=== PATIENT | male | born 1960 | race Hispanic/Latino ===

== ENCOUNTER 2020-06-15 18:02 | Emergency (ER) | payer BC ==
--- OUTSIDE RECORDS SUMMARY | 2020-06-15 18:05 | XMS REPORT | Continuity of Care Document ---
:1960 Author Organization [facility] t Address [address] [place] [address] [place] [id number] Care Team Providers Name Role Phone Unavailable Unavailable Unavailable Problems Condition Condition Condition Status Onset Resolution Last Treating Co mments Source Name Details Category Date Date Treatment Clinician Date Pain, Pain, Diagnosis Active [facility] knee, left [facility] Primary Primary Diagnosis [facility] left knee left knee [facility] Allergies, Adverse Reactions, Alerts This patient has no known allergies or adverse reactions. Medications This patient has no known medications. Procedures This patient has no known procedures. Encounters Start End Encounter Admission Attending Care Care Encounter Source Date/Time Date/Time Type Type Clinicians Facility Department ID 2018-06-01 2018-06-01 [facility] [id number] [facility] [address] 14:30:00 14:30:00 [facility] Results This patient has no known results.
--- NOTE | 2020-06-15 19:30 | RAD REPORT ---
EXAM DESCRIPTION: Regi Single View06/15/2020 7:24 pm CLINICAL HISTORY: Cough COMPARISON: none FINDINGS: Mild bilateral pulmonary opacities. The heart is normal size IMPRESSION: Mild bilateral pulmonary opacities probably pneumonia
[2020-06-15 23:29] LABS: SARS-COV-2 RT PCR POSITIVE (NEGATIVE)
--- NOTE | 2020-06-15 23:34 | EDPHYS ---
Physician Documentation [facility] Name: Kevin Zuleta Age: 60 yrs Sex: Male : 1960 Arrival Date: 06/15/2020 Time: 18:04 Bed 12 Private MD: ED Physician Jeffery Davis HPI: 06/15 20:55 This 60 yrs old Male presents to ER via Ambulatory with complaints of cp Shortness Of Breath, Cough. 20:55 The patient or guardian reports cough, that is intermittent, with no sputum, shortness cp of breath. Onset: The symptoms/episode began/occurred 3 day(s) ago. Severity of symptoms: in the emergency department the symptoms are unchanged, despite home interventions. Associated signs and symptoms: Pertinent positives: sore throat, Pertinent negatives: chest pain, diarrhea, fever, vomiting. Historical: - Allergies: 18:23 No Known Allergies; iw - Home Meds: 18:23 None [Active]; iw - PMHx: 18:23 None; iw - PSHx: 18:23 None; iw - Immunization history:: Adult Immunizations not up to date. - Social history:: Smoking status: Patient denies any tobacco usage or history of. ROS: 21:00 Eyes: Negative for injury, pain, redness, and discharge. cp 21:00 Constitutional: Negative for body aches, chills, fever, poor PO intake. 21:00 ENT: Positive for sore throat, Negative for drainage from ear(s), ear pain, difficulty swallowing, difficulty handling secretions. 21:00 Cardiovascular: Negative for chest pain, edema, palpitations. 21:00 Respiratory: Positive for cough, with no reported sputum, shortness of breath, Negative for wheezing. 21:00 Abdomen/GI: Negative for abdominal pain, nausea, vomiting, and diarrhea. 21:00 Neuro: Negative for altered mental status, headache, syncope, weakness. 21:00 All other systems are negative. Exam: 21:05 Constitutional: The patient appears in no acute distress, alert, awake, cp non-diaphoretic, non-toxic, well developed, well nourished. 21:05 Head/Face: Normocephalic, atraumatic. cp 21:05 Eyes: Periorbital structures: appear normal, Conjunctiva: normal, no exudate, no injection, Sclera: no appreciated abnormality, Lids and lashes: appear normal, bilaterally. 21:05 ENT: External ear(s): are unremarkable, Nose: is normal, Posterior pharynx: Airway: no evidence of obstruction, patent. 21:05 Neck: ROM/movement: is normal, is supple, without pain, no range of motions limitations, no meningismus, Lymph nodes: no appreciated lymphadenopathy. 21:05 Chest/axilla: Inspection: normal, Palpation: is normal, no crepitus, no tenderness. 21:05 Cardiovascular: Rate: normal, Rhythm: regular. 21:05 Respiratory: the patient does not display signs of respiratory distress, Respirations: normal, no use of accessory muscles, no retractions, labored breathing, is not present, Breath sounds: are clear throughout, no decreased breath sounds, no stridor, no wheezing. 21:05 Abdomen/GI: Exam negative for discomfort, distension, guarding, Inspection: abdomen appears normal. 21:05 Back: pain, is absent, ROM is normal. cp 21:05 Skin: cellulitis, is not appreciated, no rash present. 21:05 Neuro: Orientation: to person, place \T\ time. Mentation: is normal, Motor: moves all fours, strength is normal. Vital Signs: 18:21 BP 118 / 79; Pulse 83; Resp 16; Temp 98.7; Pulse Ox 97% on R/A; Weight 77.11 kg; Height iw 5 ft. 7 in. (170.18 cm); 21:45 BP 124 / 85; Pulse 78; Resp 16; Pulse Ox 98% on R/A; Pain 0/10; jb4 23:00 BP 111 / 67; Pulse 79; Resp 16; Pulse Ox 95% on R/A; jb4 18:21 Body Mass Index 26.63 (77.11 kg, 170.18 cm) iw MDM: 20:58 Patient medically screened. cp 21:30 Differential Diagnosis: Bronchitis Influenza Upper Respiratory Infection Viral Syndrome cp Pneumonia Other COVID-19, Strep throat. 23:33 Data reviewed: vital signs, nurses notes, lab test result(s), radiologic studies, plain cp films. 23:33 Test interpretation: by ED physician or midlevel provider: plain radiologic studies. cp Counseling: I had a detailed discussion with the patient and/or guardian regarding: lab results, radiology results, to return to the emergency department if symptoms worsen or persist or if there are any questions or concerns that arise at home. ED course: VSS. Patient appears non-toxic and no signs of respiratory distress. Will discharge to home for continued monitoring. 06/15 20:58 Order name: Strep; Complete Time: 23:02 06/15 23:02 Interpretation: Reviewed. 06/15 21:42 Order name: Throat Culture EDLA 06/15 23:30 Order name: COVID-19/FLU A+B; Complete Time: 23:30 EDLA 06/15 23:30 Interpretation: Abnormal: SARSCOV2 RT PCR POSITIVE. 06/15 18:25 Order name: CXR XRAY; Complete Time: 20:49 iw 06/15 23:02 Interpretation: Report reviewed. Administered Medications: No medications were administered Disposition: 06/16 04:16 Co-signature as Attending Physician, Jeffery Davis MD. [email or web address] Disposition: 06/15/20 23:33 Discharged to Home. Impression: Pneumonia due to other specified infectious organisms, Coronavirus infection, unspecified. - Condition is Stable. - Discharge Instructions: COVID-19. - Prescriptions for ivermectin 3 mg Oral tablet - take 5 tablet by ORAL route every other day x2 dose; 10 tablet. Tessalon Perles 100 mg Oral Capsule - take 2 capsule by ORAL route every 8 hours As needed; 30 capsule. Zithromax Z- Red 250 mg Oral Tablet - take 1 tablet by ORAL route as directed for 5 days Day 1 - take two (2) tablets one time. Day 2, 3, 4 , 5 take one (1) tablet once daily.; 6 tablet. Prednisone 20 mg Oral Tablet - take 2 tablets by ORAL route once daily for 5 days then 1 tablet daily for 5 days; 15 tablet. Albuterol Sulfate 90 mcg/actuation - inhale 1-2 puff by INHALATION route every 4-6 hours; 1 Inhaler. - Medication Reconciliation Form, Thank You Letter, Antibiotic Education, Prescription Opioid Use form. - Follow up: Private Physician; When: 2 - 3 days; Reason: Worsening of condition. - Problem is new. - Symptoms have improved. Signatures: Dispatcher [employer] [facility] Gloria Sanders RN RN iw Joe Rasheed PA PA Eris Smith RN RN jb4 Jeffery Davis MD MD [email or web address] Corrections: (The following items were deleted from the chart) 06/15 19:24 18:26 Chest Pa And Lat (2 Views)+RAD.RAD.BRZ ordered. EDLA EDMS 21:16 20:58 Influenza Screen (A \T\ B)+BA.LAB.BRZ ordered. EDLA EDMS : 20:58 CORONAVIRUS+MR.LAB.BRZ ordered. EDLA EDLA :06/14 21:00 Constitutional: Negative for body aches, chills, fever, poor PO intake, cp cp 06/15 20:06/14 21:00 Cardiovascular: Negative for chest pain, edema, palpitations, cp cp 06/15 20:06/14 21:00 Respiratory: Positive for cough, with no reported sputum, shortness of cp breath, Negative for wheezing, cp 06/15 20:06/14 21:00 Eyes: Negative for injury, pain, redness, and discharge, cp cp 06/15 20:06/14 21:00 ENT: Positive for sore throat, Negative for drainage from ear(s), ear pain, cp difficulty swallowing, difficulty handling secretions, cp 06/15 20:06/14 21:00 Abdomen/GI: Negative for abdominal pain, nausea, vomiting, and diarrhea, cp cp 06/15 20:06/14 21:00 Neuro: Negative for altered mental status, headache, syncope, weakness, cp cp 06/15 20:06/14 21:00 All other systems are negative, cp cp 06/15 23:55 23:33 06/15/2020 23:33 Discharged to Home. Impression: Pneumonia due to other specified jb4 infectious organisms; Coronavirus infection, unspecified. Condition is Stable. Forms are Medication Reconciliation Form, Thank You Letter, Antibiotic Education, Prescription Opioid Use. Follow up: Private Physician; When: 2 - 3 days; Reason: Worsening of condition. Problem is new. Symptoms have improved. cp
--- NOTE | 2020-06-15 23:34 | ER ---
Nurse's Notes [facility] Name: Kevin Zuleta Age: 60 yrs Sex: Male : 1960 Arrival Date: 06/15/2020 Time: 18:04 Bed 12 Private MD: Diagnosis: Pneumonia due to other specified infectious organisms;Coronavirus infection, unspecified Presentation: 06/15 18:21 Chief complaint: Patient states: has been working on nights and in the rain and he iw doesn't feel good , he has a cough when he tries to sleep and he doesn't rest very well , denies fever , cough keeps him up at night and makes him SOB. Coronavirus screen: cough unrelated to allergies, Client presents with at least one sign or symptom that may indicate coronavirus-19. Standard/surgical mask placed on the client. Provider contacted for isolation considerations. Ebola Screen: Patient negative for fever greater than or equal to 101.5 degrees Fahrenheit, and additional compatible Ebola Virus Disease symptoms Patient denies exposure to infectious person. Patient denies travel to an Ebola-affected area in the 21 days before illness onset. No symptoms or risks identified at this time. Initial Sepsis Screen: Does the patient meet any 2 criteria? No. Patient's initial sepsis screen is negative. Does the patient have a suspected source of infection? No. Patient's initial sepsis screen is negative. Risk Assessment: Do you want to hurt yourself or someone else? Patient reports no desire to harm self or others. Onset of symptoms was June 01, 2020. 18:21 Method Of Arrival: Ambulatory iw 18:21 Acuity: JAVID 4 iw Historical: - Allergies: 18:23 No Known Allergies; iw - Home Meds: 18:23 None [Active]; iw - PMHx: 18:23 None; iw - PSHx: 18:23 None; iw - Immunization history:: Adult Immunizations not up to date. - Social history:: Smoking status: Patient denies any tobacco usage or history of. Screenin:40 Abuse screen: Denies threats or abuse. Nutritional screening: No deficits noted. jb4 Tuberculosis screening: No symptoms or risk factors identified. Fall Risk None identified. Assessment: 20:40 General: Appears in no apparent distress. comfortable, Behavior is calm, cooperative, jb4 appropriate for age. Pain: Denies pain. Neuro: Level of Consciousness is awake, alert, obeys commands, Oriented to person, place, time, situation. Cardiovascular: Patient's skin is warm and dry. Respiratory: Airway is patent Respiratory effort is even, unlabored, Respiratory pattern is regular, symmetrical, Breath sounds are clear bilaterally. GI: No signs and/or symptoms were reported involving the gastrointestinal system. : No signs and/or symptoms were reported regarding the genitourinary system. EENT: No signs and/or symptoms were reported regarding the EENT system. Derm: Skin is intact, Skin is pink, warm \T\ dry. Musculoskeletal: Circulation, motion, and sensation intact. Range of motion: intact in all extremities. 22:00 Reassessment: Patient appears in no apparent distress at this time. Patient and/or jb4 family updated on plan of care and expected duration. Pain level reassessed. Patient is alert, oriented x 3, equal unlabored respirations, skin warm/dry/pink. 23:50 Reassessment: Patient appears in no apparent distress at this time. Patient and/or jb4 family updated on plan of care and expected duration. Pain level reassessed. Patient is alert, oriented x 3, equal unlabored respirations, skin warm/dry/pink. Vital Signs: 18:21 BP 118 / 79; Pulse 83; Resp 16; Temp 98.7; Pulse Ox 97% on R/A; Weight 77.11 kg; Height iw 5 ft. 7 in. (170.18 cm); 21:45 BP 124 / 85; Pulse 78; Resp 16; Pulse Ox 98% on R/A; Pain 0/10; jb4 23:00 BP 111 / 67; Pulse 79; Resp 16; Pulse Ox 95% on R/A; jb4 18:21 Body Mass Index 26.63 (77.11 kg, 170.18 cm) iw ED Course: 18:04 Patient arrived in ED. as 18:23 Triage completed. iw 18:24 Arm band placed on. iw 19:24 CXR XRAY In Process Unspecified. EDMS 20:40 Eris Hanson, RN is Primary Nurse. jb4 20:40 Patient has correct armband on for positive identification. Placed in gown. Bed in low jb4 position. Call light in reach. Side rails up X 1. Pulse ox on. NIBP on. 20:48 Page, Joe, PA is PHCP. cp 20:48 Jeffery Davis MD is Attending Physician. cp 23:50 No provider procedures requiring assistance completed. Patient did not have IV access jb4 during this emergency room visit. Administered Medications: No medications were administered Outcome: 23:33 Discharge ordered by MD. cp 23:50 Discharged to home ambulatory. jb4 23:50 Condition: stable 23:50 Discharge instructions given to patient, Instructed on discharge instructions, follow up and referral plans. medication usage, Demonstrated understanding of instructions, follow-up care, medications, Prescriptions given X 6 23:55 Patient left the ED. jb4 Signatures: Dispatcher [employer] EDMS Marta Jenkins Irene, RN CEDRIC Joe Rasheed PA PA cp Eris Hanson, RN RN jb4
[2020-06-16 00:54] VITALS: TEMP 98.7
[2020-06-16 00:55] VITALS: BP 124/85; O2SAT 98
== END 2020-06-15 23:55 | disposition home or self-care (01) ==
LOC: ER 18:02
DX: U07.1 COVID-19 (principal); J12.82 Pneumonia due to coronavirus disease 2019
CPT/HCPCS: 87070; 87081; 0240U; 71045; 99283